=== PATIENT | female | born 1990 | race Caucasian/White ===

== ENCOUNTER 2016-09-08 02:14 | Emergency (ER) | payer BC ==
[2016-09-08] MEDS ORDERED: 0.9 % SODIUM CHLORIDE 1,000 ML IV ONE ×2 (02:30→02:54)
[2016-09-08] MEDS ORDERED: KETOROLAC TROMETHAMINE 30 MG/1ML VIAL IVP ONE (03:05)
--- NOTE | 2016-09-08 03:05 | ED Physician Documentation ---
General Adult - HISTORIAN Historian: patient - HPI Stated Complaint: possible reaction to medication Chief Complaint: General Adult Onset: hours Timing: still present Severity: moderate Further Comments: yes (Pt is a 26 yo female with irritibility after taking Skalaxin for upper back pain. Pt is taking Vyvanse for adhd and Skelaxin 800 mg tid for upper back pain. Skelaxin is a new medication for the pt. Today, pt took and extra skelaxin tablet and has been "hyper" and irritible. She finds the side effect very uncomfortable.) - ROS CONST: other (shakey) EYES/ENT: none CVS/RESP: none GI/: none MS/SKIN/LYMPH: none NEURO/PSYCH: other (jittery) - PAST HX Past History: other (anxiety/depression/adhd) Surgeries/Procedures: Allergies/Adverse Reactions: Allergies Allergy/AdvReac Type Severity Reaction Status Date / Time codeine Allergy Severe Anaphylaxis Verified 09/08/16 02:34 Sulfa (Sulfonamide Allergy Intermediate Hives Verified 09/08/16 02:32 Antibiotics) Home Medications: Ambulatory Orders Medication Instructions Recorded B Complex with Vitamin C [Priyanka-Bee 1 tab PO D 09/08/16 with C] Cephalexin [Keflex] 500 mg PO Q12H #10 capsule 09/08/16 Cholecalciferol [Vitamin D-3] 1,000 units PO D 09/08/16 Isoniazid [Isoniazid] 50 mg PO D 09/08/16 Lisdexamfetamine Dimesylate 30 mg PO D 09/08/16 [Vyvanse] Lisdexamfetamine Dimesylate 30 mg PO D 09/08/16 [Vyvanse] Metaxalone [Skelaxin] 800 mg PO TID 09/08/16 Pyridoxine HCl [Vitamin B-6] 25 mg PO D 09/08/16 - SOCIAL HX Smoking History: non-smoker - FAMILY HX Family History: No - VITAL SIGNS Vital Signs: Vital Signs Temp Pulse Resp BP Pulse Ox 98.5 F 136 H 24 140/91 99 09/08/16 02:16 09/08/16 02:16 09/08/16 02:16 09/08/16 02:16 09/08/16 02:16 - REVIEWED ASSESSMENTS Nursing Assessment Reviewed: Yes Vitals Reviewed: Yes Progress - Progress Progress: NS 1 L IVF Toradol 30 mg IV tachycardia resolved Ativan 0.5 mg po x 1-->home. Recommend Motrin 200 mg, 2 or 3 tablets every 8 hrs with food. U/A 1+ blood Rx Keflex 500 mg po q 12 h x 5 days, 1st dose in ER. ED Results Lab/Radiology - Orders Orders: ED Orders Category Date Time Status 0.9 % Sodium Chloride [Normal Saline] 1,000 ml Med 09/08/16 02:54 Discontinued IV .STK-MED General Adult Physical Exam - PHYSICAL EXAM GENERAL APPEARANCE: moderate distress EENT: eye inspection normal, ENT inspection normal NECK: normal inspection, supple RESPIRATORY: no resp distress, chest non-tender, breath sounds normal CVS: tachycardia ABDOMEN: soft, no organomegaly, normal bowel sounds BACK: normal inspection, other (muscular tenderness R upper back) SKIN: warm/dry, normal color EXTREMITIES: non-tender, normal range of motion, no evidence of injury NEURO: oriented X3, motor nml, sensation nml, other (anxious) Discharge Clincal Impression: Skalexin side effect, Hematuria Prescriptions: Cephalexin [Keflex] 500 mg PO Q12H #10 capsule Referrals: Primary Doctor,No [Primary Care Provider] - Home Medications: Ambulatory Orders B Complex with Vitamin C [Priyanka-Bee with C] 1 tab PO D 09/08/16 Cephalexin [Keflex] 500 mg PO Q12H #10 capsule 09/08/16 Cholecalciferol [Vitamin D-3] 1,000 units PO D 09/08/16 Isoniazid [Isoniazid] 50 mg PO D 09/08/16 Lisdexamfetamine Dimesylate [Vyvanse] 30 mg PO D 09/08/16 Lisdexamfetamine Dimesylate [Vyvanse] 30 mg PO D 09/08/16 Metaxalone [Skelaxin] 800 mg PO TID 09/08/16 Pyridoxine HCl [Vitamin B-6] 25 mg PO D 09/08/16 Condition: Good Disposition: 01 HOME, SELF-CARE Decision to Admit: NO Decision Time: 04:10
[2016-09-08] MEDS ORDERED: KETOROLAC TROMETHAMINE 30 MG/1ML VIAL ONE (03:08)
[2016-09-08] MEDS ORDERED: LORazepam 1 MG TABLET PO ONE (04:09)
[2016-09-08] MEDS ORDERED: CEPHALEXIN 250 MG CAPSULE PO ONE (04:15)
[2016-09-08 06:03] LABS: APPEARANCE,URINE CLEAR (CLEAR); COLOR,URINE YELLOW (YELLOW); OCCULT BLOOD,URINE 1+ (NEGATIVE); PH URINE 6.5 (5.0 - 8.0); UROBILINOGEN URINE 0.2 Eu (0.2-1.0)
[2016-09-08 06:11] VITALS: BP 136/88
== END 2016-09-08 04:05 | disposition home or self-care (01) ==
LOC: ED 02:14
DX: T42.8X1A Poisoning by antiparkinsonism drugs and other central muscle-tone depressants, accidental (unintentional), initial encounter (principal); G25.1 Drug-induced tremor; R31.9 Hematuria, unspecified
CPT/HCPCS: 81002; J1885; J7030; 96361; 96374; 99284; S1016